=== PATIENT | male | born 1975 | race Caucasian/White ===

== ENCOUNTER 2016-07-15 13:14 | Emergency (ER) | payer BC ==
[~2016-07-15] VITALS: Ht 188 cm; Wt 100.0 kg
[2016-07-15 13:36] VITALS: Ht 188 cm; Wt 100.0 kg
[2016-07-15] MEDS ORDERED: IBUPROFEN 600 MG TAB PO ONE (17:00)
[2016-07-15] MEDS ORDERED: HYDROCODONE/APAP (5/325) TAB PO ONE (17:00)
--- NOTE | 2016-07-15 17:13 | RADRPT ---
PROCEDURE: XR Ankle. CLINICAL INDICATION: Trauma, pain TECHNIQUE: 3 views of the left ankle were performed. COMPARISON: None. FINDINGS: There is acute fracture to the base of the distal tibial medial malleolus, with moderate displacemen t of the fracture fragment. In addition, there is acute oblique fracture of the distal fibular meta physis, with mild displacement of fracture fragments. No dislocation is identified. There is no ra diodense foreign body. Significant lateral ankle soft tissue swelling is noted. Inferior calcaneal spur is incidentally noted. IMPRESSION: 1. Acute fracture through the base of the distal tibial medial malleolus and acute oblique fracture of the distal fibular metaphysis, as above. RPTAT: HDWR .Rodriguez Valente MD, MD Date Time Electronically viewed and signed by .Rodriguez Valente MD, on 07/15/2016 17:13 .R/
[2016-07-15] MEDS ORDERED: HYDR-906 PO (17:26)
[2016-07-15] MEDS ORDERED: IBUP-1542 PO (17:26)
--- NOTE | 2016-07-15 17:30 | ERD ---
ER Documentation Chief Complaint Date/Time DATE: 07/15/16 TIME: 17:29 Chief Complaint Pt with L ankle pain after fall x 1 hour ago. HPI This 49-year-old male complains of acute left ankle pain after twisting it at home today. Denies foot pain or knee pain. Denies any bleeding or lacerations. Denies restricted range of motion weakness ROS All systems reviewed and are negative except as per history of present illness. Medications Home Meds Active Scripts Ibuprofen* (Motrin*) 600 Mg Tab, 600 MG PO Q6, #15 TAB Prov:TONE HOLCOMB MD 07/15/16 Hydrocodone/Acetaminophen ([place] 5-325 Tablet) 1 Each Tablet, 1 TAB PO Q6H Y for PAIN, #14 TAB Prov:TONE HOLCOMB MD 07/15/16 PMhx/Soc Medical and Surgical Hx: pt denies Medical Hx, pt denies Surgical Hx Hx Alcohol Use: No Hx Substance Use: No Hx Tobacco Use: No Physical Exam Vitals Vital Signs Date Time Temp Pulse Resp B/P Pulse Ox O2 Delivery O2 Flow Rate FiO2 07/15/16 13:36 98.2 104 20 135/85 97 Physical Exam Const: [] Alert, [id number] per Head: Atraumatic Eyes: Normal Conjunctiva ENT: Normal External Ears, Nose and Mouth. Neck: Full range of motion..~ No meningismus. Resp: Clear to auscultation bilaterally Cardio: Regular rate and rhythm, no murmurs Abd: Soft, non tender, non distended. Normal bowel sounds Skin: No petechiae or rashes Back: No midline or flank tenderness Ext: No cyanosis, or edema. Is some tenderness and generalized swelling around the left ankle joint. There is no restricted range of motion weakness or erythema or bleeding. Neur: Awake and alert Psych: Normal Mood and Affect Results 24 hrs Current Medications Medications (Trade) Dose Ordered Sig/Elton Route PRN Reason Start Time Stop Time Status Last Admin Dose Admin Acetaminophen/ Hydrocodone Bitart ([place] (5/325)) 1 tab ONCE ONCE PO 07/15/16 17:00 07/15/16 17:01 DC 07/15/16 17:03 Ibuprofen (Motrin) 600 mg ONCE ONCE PO 07/15/16 17:00 07/15/16 17:01 DC 07/15/16 17:03 Procedures/MDM X-ray left ankle 3V Interpreted by me: Bones: There is a slightly displaced medial malleolar fracture and a oblique distal fibula fracture with slight displacement. There is disruption of the mortise as well. Joints: Disruption of the mortise but no dislocate. Impression-medial and lateral malleolar and distal fibular fracture with displaced mortise. Patient was placed in a left short leg splint and was neurovascular intact after splint. Patient is also given crutches with crutch training, [place] and ibuprofen for pain. Call was placed to Dr. Hinton, orthopedics, who confirmed the patient can be discharged home and he will follow-up with him in his office tomorrow. Patient shows no evidence of neurovascular compromise but is advised to return for fevers, redness, new worsening symptoms otherwise with orthopedics tomorrow. Departure Diagnosis: Primary Impression: Fracture, ankle closed, bimalleolar Encounter type: initial encounter Laterality: left Qualified Code: S82.842A - Fracture, ankle closed, bimalleolar, left, initial encounter Additional Impression: Ankle fracture, left Encounter type: initial encounter Fracture type: closed Qualified Code: S82.892A - Ankle fracture, left, closed, initial encounter Condition: Stable Patient Instructions: Treating Ankle Fractures Referrals: JIN CARRASCO MD Additional Instructions: You have 2 fractures in your ankle which will require orthopedic evaluation. Dr. Carlson will see you tomorrow in his office. Recheck otherwise for new or worsening symptoms-fever. TONE HOLCOMB MD Jul 15, 2016 17:30
[2016-07-15 18:13] VITALS: BP 123/65; PULSE 75; RESP 19; TEMP 98.2
== END 2016-07-15 18:19 | disposition home or self-care (01) ==
LOC: FTE 13:14
DX: S82.842A Displaced bimalleolar fracture of left lower leg, initial encounter for closed fracture (principal); S82.892A Other fracture of left lower leg, initial encounter for closed fracture; W18.39XA Other fall on same level, initial encounter; Y92.9 Unspecified place or not applicable
CPT/HCPCS: 73610